=== PATIENT | female | born 1965 | race Caucasian/White ===

== ENCOUNTER 2017-11-25 10:26 | Day surgery (SDC) | payer MEDICARE, MEDICAID ==
[~2017-11-25] VITALS: Ht 162.6 cm; Wt 67.7 kg
[~2017-11-25 10:26] MED LIST: AMLO-511 PO; ASPI-1182 PO; CALC-26 PO; CYAN100 PO; GLIP-197 PO; HYDR25TA PO; LACO100 PO; LINA5TAB PO; METF500T6 PO; OMEG-12 PO; RALO60 PO; RAMI10 PO; RANI150T7 PO
[2017-11-25] MEDS ORDERED: SODIUM CHLORIDE 0.9% 1,000 ML IV ONE ×2 (10:30→10:39)
[2017-11-25 11:44] LABS: GLUCOMETER DEV NAME(LOC) SDS 5; GLUCOSE,POINT OF CARE 133 MG/DL (70-110)
[2017-11-25] MEDS ORDERED: MIDAZOLAM HCL 5 MG/ML VIAL ONE (13:27)
[2017-11-25] MEDS ORDERED: FentaNYL CITRATE-PF 100 MCG/2 ML VIAL ONE (13:27)
== END 2017-11-25 14:25 | disposition home or self-care (01) ==
LOC: SURGERY 10:26
PROVIDERS: ATTEND Internal Medicine Gastroenterology
DX: D64.9 Anemia, unspecified (principal); R19.4 Change in bowel habit; I10 Essential (primary) hypertension; E78.5 Hyperlipidemia, unspecified; E11.9 Type 2 diabetes mellitus without complications; E78.00 Pure hypercholesterolemia, unspecified; Z79.82 Long term (current) use of aspirin; Z79.84 Long term (current) use of oral hypoglycemic drugs; Z83.71 Family history of colonic polyps; Z86.19 Personal history of other infectious and parasitic diseases; Z79.899 Other long term (current) drug therapy; Z98.890 Other specified postprocedural states
CPT/HCPCS: J2250; J3010; J7030